=== PATIENT | male | born 1975 | race Two or more races ===

== ENCOUNTER 2016-10-30 18:15 | Emergency (ER) | payer SELFPAY ==
[2016-10-30] MEDS ORDERED: ACETAMINOPHEN 500 MG TABLET ONE (19:07)
[2016-10-30] MEDS ORDERED: SODIUM CHLORIDE 0.9% 1,000 ML ONE ×2 (19:07→20:10)
[2016-10-30 19:36] LABS: ABSOLUTE NEUTROPHIL COUNT 4.8 K/mm3 (1.8-7.7); BASO # 0.1 K/mm3 (0.0-0.2); BASO % 0.9 % (0.2-1.0); EOS # 0.2 (0.0-0.5); EOS % 2.1 % (0.9-2.9); HEMATOCRIT 41.4 % (32.0-52.0); HEMOGLOBIN 13.5 gm/l (14.0-18.0); IMM NEUT # 0.1 K/mm3 (0-0.2); IMM NEUT% 0.6 % (0-1); LYMPH # 2.7 (1.0-4.8); LYMPH % 32.1 % (15-45); MEAN CELL VOLUME 96.1 fl (80.0-94.0); MEAN CORPUSCULAR HEMOGLOBIN 31.3 pg (27.0-31.0); MEAN CORPUSCULAR HGB CONC 32.6 g/dl (33.0-37.0); MEAN PLATELET VOLUME 9.4 fl (7.4-10.4); MONO # 0.7 (0.0-0.8); NEUT % 56.3 % (43-75); PLATELET COUNT 383 K/mm3 (130-400); RED CELL DISTRIBUTION WIDTH 13.9 % (11.5-14.5)
[2016-10-30 19:49] LABS: ALB/GLOB RATIO 0.9 (>1.0); ALBUMIN 3.3 gm/dL (3.5-5.7); CALCIUM 8.8 mg/dL (8.6-10.3)
--- NOTE | 2016-10-30 20:33 | US ---
Name: YOUSIF SHETTY Exam: Scrotal ultrasound Comparison: None Clinical history: Right-sided infrascrotal pain Findings: Ultrasound scrotum was performed. Testicular size is fairly homogeneous. The right measures 4.3 x 2.9 x 2.7 cm. The left measures 4.7 x 2.8 x 2.4 cm. Testicular echogenicity and blood flow is fairly symmetric. There is no testicular mass or calcification. Epididymal heads are fairly symmetric in size. 6 mm and less epididymal cysts are identified. The tail of the right epididymis is quite heterogeneous and enlarged with increased flow. Inferior to the right testicle, there is a fairly large area of increased echogenicity and this is the area of pain as indicated by the patient. This fatty collection may be related to a hernia. Right scrotal skin thickening is present. There is no significant hydrocele and there is no varicocele. Impression: 1. No testicular mass or torsion 2. Right epididymitis 3. Fairly large area of increased echogenicity inferior to the right testicle in the region of the patient's pain and palpable abnormality. Herniated fat could certainly have this appearance. Note: The above report was uploaded to [facility]'s electronic medical records system at 2026 hours.
[2016-10-30 20:50] LABS: SPECIFIC GRAVITY 1.025 (1.001-1.030); URINE BILIRUBIN NEGATIVE (NEGATIVE); URINE BLOOD TRACE (NEGATIVE); URINE GLUCOSE (UA) NEGATIVE (NEGATIVE); URINE LEUKOCYTE ESTERASE TRACE (NEGATIVE); URINE NITRITE NEGATIVE (NEGATIVE); URINE PROTEIN 2+ (NEGATIVE); URINE UROBILINOGEN 1 mg/dL (0-1 mg/dl)
[2016-10-30 20:56] LABS: URINE APPEARANCE HAZY; URINE COLOR AMBER
[2016-10-30 21:14] LABS: URINE EPITHELIAL CELLS 0-1 /hpf
[2016-10-30 21:15] LABS: URINE BACTERIA FEW
[2016-10-30] MEDS ORDERED: AZITHROMYCIN 250 MG TABLET ONE (21:15)
[2016-10-30] MEDS ORDERED: CEFTRIAXONE SODIUM 250 MG VIAL ONE (21:15)
== END 2016-10-30 21:54 | disposition home or self-care (01) ==
LOC: ED 18:15
DX: N45.1 Epididymitis (principal); N50.811 Right testicular pain